=== PATIENT | female | born 1935 | race Caucasian/White ===

== ENCOUNTER 2016-10-29 14:24 | Outpatient (CLI) | payer BC ==
--- NOTE | 2016-10-29 21:58 | RAD ---
LEFT HIP Two views show a prior left hip arthroplasty with no sign of loosen or infection of the hardware. Th e surrounding bone appears normal. As has been noted before, one of the screws in the acetabular cup laterally is outside of the bone of the pelvis. IMPRESSION: No acute findings POS: HOME
== END 2016-10-29 14:25 | disposition home or self-care (01) ==
LOC: BURRAD 14:24
PROVIDERS: ATTEND Family Medicine
DX: M25.552 Pain in left hip (principal)

== ENCOUNTER 2017-07-16 21:29 | Inpatient (IN) | payer MEDICARE, BC ==
[2017-07-16] MEDS ORDERED: Ondansetron HCl/PF 4 MG/2 ML Vial ONE (21:47)
[2017-07-16 22:17] LABS: Bilirubin Negative (Negative); Blood, Urine Moderate (Negative); Clarity Cloudy (Clear); Glucose, Urine (Dipstick) Negative (Negative); Leukocyte Moderate (Negative); Nitrite Positive (Negative); Protein, Urine (Dipstick) 100 mg/dL (Neg-Trace); Urobilinogen 0.2 mg/dL (0.2-1.0); pH, Urine 5.5 (5.0-9.0)
[2017-07-16 22:20] LABS: Hemoglobin 10.7 g/dL (12.0-16.0); Mean Corpuscular HGB CONC 33.3 g/dL (32.0-36.0); Mean Corpuscular Hemoglobin 29.4 pg (27.0-31.0); Mean Corpuscular Volume 88.3 fl (81.0-99.0); Mean Platelet Volume 6.5 fL (7.4-10.4); Platelet Count 185 thou/uL (130-400); RBC Distribution Width 14.5 % (11.5-14.5); Red Blood Cell (RBC) Count 3.63 mill/uL (4.20-5.40); White Blood Cell (WBC) Count 24.6 thou/uL (4.8-10.8)
[2017-07-16 22:29] LABS: ALT (SGPT) 11 U/L (8-55); AST (SGOT) 20 U/L (5-34); Albumin 2.8 g/dL (3.4-4.8); Alkaline Phosphatase 85 U/L (40-150); Anion Gap 17 mmol/L (10-20); BUN (Urea Nitrogen) 59 mg/dL (9.8-20.1); Bilirubin, Total 0.6 mg/dL (0.2-1.2); Calc. Creatinine Clearance 0 mL/min (70-130); Calcium 9.6 mg/dL (7.8-10.44); Carbon Dioxide 21 mmol/L (23-31); Chloride 98 mmol/L (98-107); Estimated GFR-MDRD 12; Globulin 3.6 g/dL (2.4-3.5); Glucose 95 mg/dL (83-110); Potassium 4.1 mmol/L (3.5-5.1); Protein, Total 6.4 g/dL (6.0-8.3); Sodium 132 mmol/L (136-145)
[2017-07-16 22:32] LABS: Bacteria/HPF 3+ HPF (None Seen); RBC/HPF 0-3 HPF (0-3); Transitional Epithelial 0-3 HPF (0-3)
[2017-07-16 22:41] LABS: Band 16 % (5-11); Dohle Bodies SLIGHT; Lymphocytes 6 % (21-51); MDiff Complete? YES; Monocytes 12 % (0-10); Neutrophil 66 % (42-75); PLT Morphology Comment Appears Adequate; RBC Morphology Normal; Toxic Granulation SLIGHT; Vacuoles SLIGHT
[2017-07-17 02:07] VITALS: BMI 27.4
[2017-07-17] MEDS ORDERED: Ondansetron ODT 4 MG TAB SL PRN (02:14)
[2017-07-17] MEDS ORDERED: Ondansetron HCl/PF 4 MG/2 ML Vial IVP PRN (02:14)
[2017-07-17] MEDS: Sodium Chloride 0.9% 1,000 ML IV SCH ×3 (02:15→19:10)
[2017-07-17 06:07] LABS: #Basophils 0.1 thou/uL (0.0-0.2); #Lymphocytes 1.4 thou/uL (1.20-3.40); #Monocytes 2.2 thou/uL (0.11-0.59); %Basophils 0.5 % (0.0-1.0); %Eosinophils 0.2 % (0.0-10.0); %Lymphocytes 5.6 % (21.0-51.0); %Monocytes 8.6 % (0.0-10.0); %Neutrophils 85.2 % (42.0-75.0); Hemoglobin 10.9 g/dL (12.0-16.0); Mean Corpuscular HGB CONC 32.1 g/dL (32.0-36.0); Mean Corpuscular Hemoglobin 28.9 pg (27.0-31.0); Mean Corpuscular Volume 89.9 fl (81.0-99.0); Mean Platelet Volume 6.3 fL (7.4-10.4); Platelet Count 213 thou/uL (130-400); RBC Distribution Width 14.7 % (11.5-14.5); Red Blood Cell (RBC) Count 3.78 mill/uL (4.20-5.40); White Blood Cell (WBC) Count 25.9 thou/uL (4.8-10.8)
[2017-07-17 06:23] LABS: ALT (SGPT) 12 U/L (8-55); AST (SGOT) 27 U/L (5-34); Albumin 2.6 g/dL (3.4-4.8); Alkaline Phosphatase 99 U/L (40-150); Anion Gap 18 mmol/L (10-20); BUN (Urea Nitrogen) 57 mg/dL (9.8-20.1); Bilirubin, Total 0.6 mg/dL (0.2-1.2); Calc. Creatinine Clearance 16 mL/min (70-130); Calcium 9.2 mg/dL (7.8-10.44); Carbon Dioxide 19 mmol/L (23-31); Chloride 100 mmol/L (98-107); Estimated GFR-MDRD 13; Globulin 3.6 g/dL (2.4-3.5); Glucose 71 mg/dL (83-110); Potassium 3.9 mmol/L (3.5-5.1); Protein, Total 6.2 g/dL (6.0-8.3); Sodium 133 mmol/L (136-145)
[2017-07-17] MEDS ORDERED: Bisacodyl 5 MG TAB PO PRN (16:16)
[2017-07-17] MEDS ORDERED: Milk Of Magnesia 30 ML UDCUP PO PRN (16:16)
--- NOTE | 2017-07-17 18:24 | HP ---
CHIEF COMPLAINT: Generalized weakness, malaise, fevers, and chills. HISTORY OF PRESENT ILLNESS: The patient is an 81-year-old white female who usually lives alone. Rep orts a several day history of progressive worsening malaise, weakness, inability to ambulate associat ed with decreased appetite, nausea, and some dysuria with fevers. When she presented to the emergenc y room, she was brought in by ambulance because she was unable to ambulate. In the emergency room, s he was found to be significantly dehydrated and urinalysis consistent with UTI causing her dehydratio n. Patient required inpatient stay for likely sepsis secondary to urinary tract infection with leuko cytosis and generalized extreme weakness with inability to ambulate secondary to her sepsis. PAST MEDICAL HISTORY: 1. Bladder carcinoma, appears to be in remission negative biopsy in 2014. 2. Breast cancer in remission. 3. Chronic renal disease, stage 2. 4. Hyperlipidemia. PAST SURGICAL HISTORY: Significant for cholecystectomy. CURRENT MEDICATIONS: Arimidex daily. ALLERGIES: SULFA. SOCIAL HISTORY: The patient lives alone. No significant history of smoking, alcohol, or social drug use. She is . 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 FAMILY HISTORY: Father lived to age 87. Mother lived to age 80, both of related to old age. REVIEW OF SYSTEMS: Other than in HPI, the patient denies any visual changes, no recent cough, no URI like symptoms. The patient does report some occasional loose stools and abdominal cramping. She de nies any melena nor hematochezia. The patient denies any significant weight gain or weight loss. No recent rashes reported. The patient denies any significant back pain other than diffuse joint aches or pains. The patient denies depression. PHYSICAL EXAMINATION: GENERAL: Elderly white female, alert and oriented x3, in no obvious distress, lying comfortably in b ed. VITAL SIGNS: Significant for blood pressure 128/56, pulse of 114, O2 sat was 93% on room air, respir atory rate was 20, temperature was 99.4. HEENT: Oropharynx, mucous membranes were dry. No lesions or ulcers were noted. NECK: Supple, no masses palpated. CHEST: Clear to auscultation bilaterally. HEART: Regular rate and rhythm. ABDOMEN: Flat, soft, nontender, nondistended. No masses were palpated. EXTREMITIES: No cyanosis, clubbing, or edema. BACK: There was no obvious CVA tenderness, but there was achiness throughout the lower back bilatera lly. LABORATORY FINDINGS: Urinalysis was significant for 3+ bacteria and greater than 50 wbc's, positive nitrites, moderate blood, moderate leukocyte esterase. H and H was 10.9 and 34.0. White blood count was elevated at 24.6 on admission. Chemistry was significant for BUN of 59 and creatinine of 3.65. Her previous BUN and creatinine from several months ago were in the normal range. Lactic acid was 1 .2. ASSESSMENT AND PLAN: 1. Urinary tract infection. The patient was started on IV Levaquin. Blood cultures and urine cultu res were obtained and are pending. 2. Sepsis. The patient has significant leukocytosis, generalized weakness, tachycardia, and was sli ghtly elevated temperature. These symptoms should improve once we treat her urinary tract infection. 3. Significant dehydration with prerenal insufficiency. We will treat with IV fluids as well as ora l rehydration. Currently on normal saline of 125 mL per hour or reevaluated in 24 to 48 hours. DISPOSITION: Due to the patient's extreme weakness, physical therapy and occupational therapy will b e ordered. Unlikely she will be able to be discharged back to independent living in the next few day s, may need long terms retirement stay once her urinary tract infection had significantly improv ed.
[2017-07-18] MEDS: Sodium Chloride 0.9% 1,000 ML IV SCH ×3 (02:41→19:48)
[2017-07-18 06:01] LABS: #Basophils 0.1 thou/uL (0.0-0.2); #Eosinphils 0.1 thou/uL (0.0-0.7); #Monocytes 1.8 thou/uL (0.11-0.59); #Neutrophils 14.5 thou/uL (1.40-6.50); %Basophils 0.7 % (0.0-1.0); %Eosinophils 0.4 % (0.0-10.0); %Lymphocytes 5.8 % (21.0-51.0); %Monocytes 10.2 % (0.0-10.0); %Neutrophils 82.9 % (42.0-75.0); Hemoglobin 9.1 g/dL (12.0-16.0); Mean Corpuscular HGB CONC 32.1 g/dL (32.0-36.0); Mean Corpuscular Hemoglobin 28.8 pg (27.0-31.0); Mean Corpuscular Volume 89.6 fl (81.0-99.0); Mean Platelet Volume 6.4 fL (7.4-10.4); Platelet Count 152 thou/uL (130-400); RBC Distribution Width 14.8 % (11.5-14.5); Red Blood Cell (RBC) Count 3.16 mill/uL (4.20-5.40); White Blood Cell (WBC) Count 17.5 thou/uL (4.8-10.8)
[2017-07-18 06:50] LABS: Anion Gap 13 mmol/L (10-20)
[2017-07-18 06:56] LABS: ALT (SGPT) 11 U/L (8-55); AST (SGOT) 21 U/L (5-34); Albumin 1.9 g/dL (3.4-4.8); Alkaline Phosphatase 62 U/L (40-150); BUN (Urea Nitrogen) 55 mg/dL (9.8-20.1); Bilirubin, Total 0.5 mg/dL (0.2-1.2); Calc. Creatinine Clearance 19 mL/min (70-130); Calcium 7.4 mg/dL (7.8-10.44); Carbon Dioxide 19 mmol/L (23-31); Chloride 107 mmol/L (98-107); Estimated GFR-MDRD 16; Globulin 2.1 g/dL (2.4-3.5); Glucose 68 mg/dL (83-110); Potassium 3.6 mmol/L (3.5-5.1); Sodium 135 mmol/L (136-145)
[2017-07-18] MEDS: ANASTROZOLE 1 MG PO SCH (10:34)
[2017-07-18] MEDS: Acetaminophen 325 MG TAB PO PRN (22:55)
[2017-07-19] MEDS: Sodium Chloride 0.9% 1,000 ML IV SCH ×3 (05:55→17:45)
[2017-07-19 06:20] LABS: #Basophils 0.2 thou/uL (0.0-0.2); #Eosinphils 0.3 thou/uL (0.0-0.7); #Lymphocytes 1.1 thou/uL (1.20-3.40); #Monocytes 0.9 thou/uL (0.11-0.59); #Neutrophils 12.8 thou/uL (1.40-6.50); %Basophils 1.4 % (0.0-1.0); %Lymphocytes 7.3 % (21.0-51.0); %Neutrophils 83.2 % (42.0-75.0); Hemoglobin 10.3 g/dL (12.0-16.0); Mean Corpuscular HGB CONC 34.6 g/dL (32.0-36.0); Mean Corpuscular Hemoglobin 30.5 pg (27.0-31.0); Mean Corpuscular Volume 88.2 fl (81.0-99.0); Mean Platelet Volume 6.1 fL (7.4-10.4); Platelet Count 153 thou/uL (130-400); RBC Distribution Width 14.7 % (11.5-14.5); Red Blood Cell (RBC) Count 3.37 mill/uL (4.20-5.40); White Blood Cell (WBC) Count 15.4 thou/uL (4.8-10.8)
[2017-07-19 06:34] LABS: ALT (SGPT) 15 U/L (8-55); AST (SGOT) 29 U/L (5-34); Albumin 1.9 g/dL (3.4-4.8); Alkaline Phosphatase 75 U/L (40-150); Anion Gap 13 mmol/L (10-20); BUN (Urea Nitrogen) 48 mg/dL (9.8-20.1); Bilirubin, Total 0.5 mg/dL (0.2-1.2); Calc. Creatinine Clearance 21 mL/min (70-130); Calcium 7.9 mg/dL (7.8-10.44); Carbon Dioxide 19 mmol/L (23-31); Chloride 110 mmol/L (98-107); Estimated GFR-MDRD 19; Globulin 2.7 g/dL (2.4-3.5); Glucose 80 mg/dL (83-110); Potassium 3.5 mmol/L (3.5-5.1); Protein, Total 4.6 g/dL (6.0-8.3); Sodium 138 mmol/L (136-145)
[2017-07-19] MEDS: ANASTROZOLE 1 MG PO SCH (10:19)
[2017-07-19] MEDS: Acetaminophen 325 MG TAB PO PRN (14:53)
[2017-07-20] MEDS: Sodium Chloride 0.9% 1,000 ML IV SCH ×2 (03:56→11:26)
[2017-07-20 06:01] LABS: #Basophils 0.1 thou/uL (0.0-0.2); #Eosinphils 0.3 thou/uL (0.0-0.7); #Lymphocytes 1.1 thou/uL (1.20-3.40); #Monocytes 0.9 thou/uL (0.11-0.59); #Neutrophils 15.5 thou/uL (1.40-6.50); %Basophils 0.6 % (0.0-1.0); %Eosinophils 1.7 % (0.0-10.0); %Lymphocytes 5.9 % (21.0-51.0); %Monocytes 5.2 % (0.0-10.0); %Neutrophils 86.6 % (42.0-75.0); Hemoglobin 10.1 g/dL (12.0-16.0); Mean Corpuscular HGB CONC 33.1 g/dL (32.0-36.0); Mean Corpuscular Hemoglobin 29.5 pg (27.0-31.0); Mean Corpuscular Volume 89.1 fl (81.0-99.0); Mean Platelet Volume 6.1 fL (7.4-10.4); Platelet Count 168 thou/uL (130-400); RBC Distribution Width 15.5 % (11.5-14.5); Red Blood Cell (RBC) Count 3.41 mill/uL (4.20-5.40); White Blood Cell (WBC) Count 17.9 thou/uL (4.8-10.8)
[2017-07-20 06:27] VITALS: BP 178/77; TEMP 98.3
[2017-07-20 06:28] LABS: ALT (SGPT) 16 U/L (8-55); AST (SGOT) 28 U/L (5-34); Alkaline Phosphatase 54 U/L (40-150); Anion Gap 14 mmol/L (10-20); BUN (Urea Nitrogen) 40 mg/dL (9.8-20.1); Bilirubin, Total 0.6 mg/dL (0.2-1.2); Calc. Creatinine Clearance 25 mL/min (70-130); Calcium 7.5 mg/dL (7.8-10.44); Carbon Dioxide 17 mmol/L (23-31); Chloride 112 mmol/L (98-107); Estimated GFR-MDRD 22; Globulin 2.2 g/dL (2.4-3.5); Glucose 88 mg/dL (83-110); Potassium 3.6 mmol/L (3.5-5.1); Protein, Total 4.2 g/dL (6.0-8.3); Sodium 139 mmol/L (136-145)
[2017-07-20] MEDS: ANASTROZOLE 1 MG PO SCH (09:01)
--- NOTE | 2017-07-21 07:09 | DIS ---
DATE OF ADMISSION: 07/17/2017 DATE OF TRANSFER: 07/20/2017 ADMISSION DIAGNOSES: 1. Pyelonephritis. 2. Sepsis. 3. Prerenal azotemia/acute kidney injury. 4. Dehydration. DISCHARGE DIAGNOSES: 1. Pyelonephritis due to Klebsiella pneumoniae. 2. Sepsis, blood cultures negative x48 hours. 3. Prerenal azotemia/acute kidney injury 4. Dehydration. 5. Diarrhea. 6. New-onset atrial flutter. PROCEDURES: None. ADMITTING PHYSICIAN: Bita Heller MD, who cared for the patient up until the morning of 07/20/2017. Alexia Keith DO assumed care on the morning of 07/20. HISTORY AND PHYSICAL: Please see dictated report from the admitting physician from 07/17/2017. HOSPITAL COURSE: Ms. Hinkle is an 81-year-old female, who presented to the emergency room with complaints of worsening malaise, weakness, decreased ambulation, decreased appetite, nausea, and dysuria with fever. She was diagnosed with pyelonephritis. She was placed on Levaquin that was renally dosed. Urine culture subsequently grew out Klebsiella pneumoniae. Her leukocytosis diminished with hospitalization from 24.6 on the date of admission to 17.9 on the date of discharge. Her abdominal pain and dysuria improved. Her blood cultures were negative at 48 hours. Urine culture subsequently grew out Klebsiella, which was sensitive to fluoroquinolones. The patient also presented with significant dehydration and acute kidney injury. Her creatinine on admission was 3.65 and improved to 2.11 on the date of transfer with IV fluids. On the date of transfer, the patient had complained of copious diarrhea and Clostridium difficile test was performed with the results pending at the time of transfer. She has had no associated nausea or emesis with this. On the date of transfer, the patient had a pulse in normal range, 90s. This was notably higher than it had been throughout her admission. On examination, the patient was also noted to have an irregularly irregular rhythm. Upon review of prior history, the patient had no history of arrhythmia. She denied any cardiac history. She did not have an EKG done in the ER for comparison. A bedside EKG performed, 12 lead, revealed atrial flutter that was rate controlled at 92 beats per minute. Therefore, the patient was recommended, since this was new onset, transfer to higher level of care which would include telemetry monitoring, which is not available here, and Cardiology consultation. I discussed with the [facility] armor reconnaissance vehicle driver, Dr. Vela, prior to transfer, and he has accepted the patient. I discussed whether I needed to anticoagulate or give anything for rate control prior to her transfer, and it was recommended to me not to start her on anything until she can be assessed there after transfer. Therefore, I have transferred the patient to [facility] under the care of the [facility], Dr. Vela. She is currently rate controlled and asymptomatic with respect to her arrhythmia. She denies dyspnea, chest pain, leg edema. She has had a dry cough, but no sputum production. Her lungs are clear to auscultation. Her blood pressure has been stable. DISPOSITION: Transferred to [facility]. MEDICATIONS: The patient will continue all of her current active inpatient medications at this time. 1. Acetaminophen 650 mg p.o. q.4 hours p.r.n. 2. Arimidex 1 mg daily. 3. Dulcolax suppository 10 mg p.o. daily p.r.n. 4. Levaquin 500 mg IV q.48 hours. 5. Zofran ODT 4 mg p.o. q.6 hours p.r.n. nausea. 6. Sodium chloride at 100 mL per hour. FOLLOWUP: Patient will follow up with me, her primary care physician, per her discharge instructions from the other health center. [facility]
== END 2017-07-20 14:45 | disposition short-term general hospital (02) | DRG 872 ==
LOC: BURERS 21:29 → BURMED 07-17 00:20
PROVIDERS: ADMIT Family Medicine; ATTEND Family Medicine
DX: A41.9 Sepsis, unspecified organism (principal); N17.9 Acute kidney failure, unspecified; I48.92 Unspecified atrial flutter; E86.0 Dehydration; N10 Acute pyelonephritis; R65.20 Severe sepsis without septic shock; Z85.51 Personal history of malignant neoplasm of bladder; Z85.3 Personal history of malignant neoplasm of breast; E78.5 Hyperlipidemia, unspecified; N18.2 Chronic kidney disease, stage 2 (mild); Z88.2 Allergy status to sulfonamides; R53.1 Weakness; B96.1 Klebsiella pneumoniae [K. pneumoniae] as the cause of diseases classified elsewhere; R19.7 Diarrhea, unspecified
CPT/HCPCS: 36415; 51701; 80053; 81003; 81015; 83605; 85025; 87040; 87077; 87086; 87186; 87324; 87449; 96361; 96365; 96375; A4353; G8978-GP-CL; G8979-GP-CI; J1956; J2405; Q0162

== ENCOUNTER 2017-07-23 12:18 | Inpatient (IN) | payer MEDICARE, BC ==
[2017-07-23 15:58] VITALS: BMI 33.8
[2017-07-23] MEDS ORDERED: cloNIDine 0.1 MG TAB PO PRN (16:34)
[2017-07-23] MEDS ORDERED: Milk Of Magnesia 30 ML UDCUP PO PRN (16:34)
[2017-07-23] MEDS ORDERED: Bisacodyl 5 MG TAB PO PRN (16:34)
[2017-07-23] MEDS ORDERED: Ondansetron ODT 4 MG TAB SL PRN (16:34)
[2017-07-23] MEDS ORDERED: Ondansetron HCl/PF 4 MG/2 ML Vial IVP PRN (16:34)
[2017-07-23 17:11] LABS: Hemoglobin 9.7 g/dL (12.0-16.0); Platelet Count 270 thou/uL (130-400)
[2017-07-23] MEDS: Apixaban 5 MG TAB PO SCH (22:13)
[2017-07-23] MEDS: Acetaminophen 325 MG TAB PO PRN (22:18)
[2017-07-23] MEDS: Guaifenesin DM 100-10/5 ML UDCUP PO PRN (22:54)
[2017-07-24] MEDS: Guaifenesin DM 100-10/5 ML UDCUP PO PRN ×2 (03:20→15:55)
[2017-07-24] MEDS: Famotidine 20 MG TAB PO SCH (09:07)
[2017-07-24] MEDS: Apixaban 5 MG TAB PO SCH ×2 (09:07→20:44)
[2017-07-24] MEDS: Anastrozole 1 MG TAB PO SCH (09:07)
[2017-07-25 05:26] LABS: Hemoglobin 8.6 g/dL (12.0-16.0); Platelet Count 294 thou/uL (130-400)
[2017-07-25] MEDS: Apixaban 5 MG TAB PO SCH ×2 (10:24→21:31)
[2017-07-25] MEDS: Anastrozole 1 MG TAB PO SCH (10:24)
[2017-07-25] MEDS: Famotidine 20 MG TAB PO SCH (10:24)
[2017-07-25] MEDS: Guaifenesin DM 100-10/5 ML UDCUP PO PRN (14:42)
[2017-07-26 05:53] LABS: #Basophils 0.1 thou/uL (0.0-0.2); #Eosinphils 0.3 thou/uL (0.0-0.7); #Lymphocytes 1.4 thou/uL (1.20-3.40); #Monocytes 0.6 thou/uL (0.11-0.59); #Neutrophils 8.1 thou/uL (1.40-6.50); %Basophils 1.1 % (0.0-1.0); %Eosinophils 3.1 % (0.0-10.0); %Monocytes 6.1 % (0.0-10.0); %Neutrophils 76.8 % (42.0-75.0); Mean Corpuscular HGB CONC 32.2 g/dL (32.0-36.0); Mean Corpuscular Hemoglobin 28.6 pg (27.0-31.0); Mean Corpuscular Volume 88.7 fl (81.0-99.0); Mean Platelet Volume 5.3 fL (7.4-10.4); Platelet Count 328 thou/uL (130-400); RBC Distribution Width 15.6 % (11.5-14.5); Red Blood Cell (RBC) Count 3.14 mill/uL (4.20-5.40); White Blood Cell (WBC) Count 10.5 thou/uL (4.8-10.8)
[2017-07-26] MEDS: Guaifenesin DM 100-10/5 ML UDCUP PO PRN (06:02)
[2017-07-26 06:04] LABS: Anion Gap 14 mmol/L (10-20); BUN (Urea Nitrogen) 26 mg/dL (9.8-20.1); Calc. Creatinine Clearance 35 mL/min (70-130); Calcium 8.3 mg/dL (7.8-10.44); Carbon Dioxide 24 mmol/L (23-31); Chloride 106 mmol/L (98-107); Estimated GFR-MDRD 30; Glucose 87 mg/dL (83-110); Potassium 3.9 mmol/L (3.5-5.1); Sodium 140 mmol/L (136-145)
[2017-07-26] MEDS: Apixaban 5 MG TAB PO SCH ×2 (08:19→20:19)
[2017-07-26] MEDS: Famotidine 20 MG TAB PO SCH (08:19)
[2017-07-26] MEDS: Anastrozole 1 MG TAB PO SCH (08:22)
[2017-07-26] MEDS: Acetaminophen 325 MG TAB PO PRN (20:19)
[2017-07-27 05:30] LABS: Hemoglobin 9.2 g/dL (12.0-16.0); Platelet Count 343 thou/uL (130-400)
[2017-07-27] MEDS: Famotidine 20 MG TAB PO SCH (09:06)
[2017-07-27] MEDS: Anastrozole 1 MG TAB PO SCH (09:06)
[2017-07-27] MEDS: Apixaban 5 MG TAB PO SCH ×2 (09:06→20:30)
[2017-07-28] MEDS: Famotidine 20 MG TAB PO SCH (08:58)
[2017-07-28] MEDS: Apixaban 5 MG TAB PO SCH ×2 (08:59→20:43)
[2017-07-28] MEDS: Anastrozole 1 MG TAB PO SCH (08:59)
[2017-07-29 06:09] LABS: Platelet Count 341 thou/uL (130-400)
[2017-07-29] MEDS: Apixaban 5 MG TAB PO SCH ×2 (08:49→19:50)
[2017-07-29] MEDS: Famotidine 20 MG TAB PO SCH (08:49)
[2017-07-29] MEDS: Anastrozole 1 MG TAB PO SCH (08:50)
[2017-07-30] MEDS: Apixaban 5 MG TAB PO SCH ×2 (08:22→20:28)
[2017-07-30] MEDS: Famotidine 20 MG TAB PO SCH (08:22)
[2017-07-30] MEDS: Anastrozole 1 MG TAB PO SCH (08:22)
[2017-07-31 06:06] LABS: Hemoglobin 9.6 g/dL (12.0-16.0); Platelet Count 348 thou/uL (130-400)
[2017-07-31] MEDS: Famotidine 20 MG TAB PO SCH (09:06)
[2017-07-31] MEDS: Anastrozole 1 MG TAB PO SCH (09:06)
[2017-07-31] MEDS: Apixaban 5 MG TAB PO SCH ×2 (09:07→20:32)
[2017-08-01] MEDS: Anastrozole 1 MG TAB PO SCH (09:42)
[2017-08-01] MEDS: Famotidine 20 MG TAB PO SCH (09:42)
[2017-08-01] MEDS: Apixaban 5 MG TAB PO SCH ×2 (09:43→20:45)
[2017-08-02 06:00] LABS: Hemoglobin 9.8 g/dL (12.0-16.0); Platelet Count 308 thou/uL (130-400)
[2017-08-02] MEDS: Apixaban 5 MG TAB PO SCH ×2 (09:02→20:34)
[2017-08-02] MEDS: Famotidine 20 MG TAB PO SCH (09:03)
[2017-08-02] MEDS: Anastrozole 1 MG TAB PO SCH (09:08)
[2017-08-03] MEDS: Famotidine 20 MG TAB PO SCH (08:33)
[2017-08-03] MEDS: Anastrozole 1 MG TAB PO SCH (08:34)
[2017-08-03] MEDS: Apixaban 5 MG TAB PO SCH ×2 (08:34→20:44)
[2017-08-04 05:25] LABS: Hemoglobin 9.4 g/dL (12.0-16.0); Platelet Count 226 thou/uL (130-400)
[2017-08-04 06:00] VITALS: BP 140/63
[2017-08-04] MEDS: Anastrozole 1 MG TAB PO SCH (08:42)
[2017-08-04] MEDS: Apixaban 5 MG TAB PO SCH (08:42)
[2017-08-04] MEDS: Famotidine 20 MG TAB PO SCH (08:43)
[2017-08-04 09:58] VITALS: TEMP 98.2
== END 2017-08-04 17:40 | disposition home health service (06) | DRG 872 ==
LOC: BURMED 14:28
PROVIDERS: ADMIT Family Medicine; ATTEND Family Medicine
DX: A41.9 Sepsis, unspecified organism (principal); N17.9 Acute kidney failure, unspecified; I48.92 Unspecified atrial flutter; N12 Tubulo-interstitial nephritis, not specified as acute or chronic; Z79.01 Long term (current) use of anticoagulants; E78.5 Hyperlipidemia, unspecified; Z85.3 Personal history of malignant neoplasm of breast; Z85.51 Personal history of malignant neoplasm of bladder
CPT/HCPCS: 36415; 80048; 82565; 85014; 85018; 85025; 85049; 90471; 90732; G0009; G8978-GP-CL; G8979-GP-CJ; G8987-GO-CK; G8988-GO-CI; Q0162

== ENCOUNTER 2018-06-02 16:17 | Emergency (ER) | payer BC ==
[2018-06-02] MEDS ORDERED: cefTRIAXone\\ROCEPHIN 1 GM VIAL ONE (16:41)
[2018-06-02] MEDS ORDERED: Phenazopyridine HCl 97.5 MG TABLET ONE (16:41)
[2018-06-02] MEDS ORDERED: Water For Inject, Bacteriostat 30 ML ONE (16:42)
[2018-06-02 16:49] LABS: Clarity Turbid (Clear)
[2018-06-02 16:50] LABS: Bilirubin Negative (Negative); Blood, Urine Moderate (Negative); Glucose, Urine (Dipstick) Negative (Negative); Leukocyte Large (Negative); Nitrite Negative (Negative); Protein, Urine (Dipstick) 100 mg/dL (Neg-Trace); Specific Gravity, Urine 1.015 (1.005-1.030); Urobilinogen 0.2 mg/dL (0.2-1.0); pH, Urine 8.5 (5.0-9.0)
[2018-06-02 16:56] LABS: Bacteria/HPF 4+ HPF (None Seen); Squamous Epithelial 0-3 HPF (0-3)
== END 2018-06-02 16:56 | disposition home or self-care (01) ==
LOC: BURERS 16:17
DX: N39.0 Urinary tract infection, site not specified (principal); Z85.3 Personal history of malignant neoplasm of breast; Z85.51 Personal history of malignant neoplasm of bladder
CPT/HCPCS: 81003; 81015; 87086; J0696